=== PATIENT | female | born 2005 | race Caucasian/White ===

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

== ENCOUNTER 2023-07-02 23:44 | Emergency (ER) | payer OTHER, SELFPAY ==
[2023-07-02 23:56] VITALS: BP 140/78; PULSE 89; RESP 20; TEMP 36.1; O2SAT 98; BMI 22.6
--- NOTE | 2023-07-03 00:07 | ED_ITS ---
HPI - Ear Problem General Chief complaint: Ear Problems Stated complaint: Ear pain Time Seen by Provider: 07/03/23 00:07 Source: patient Mode of arrival: ambulatory Limitations: no limitations History of Present Illness HPI Narrative: Patient comes to the emergency room complaining of right ear pain for approximately 3 hours. Patient denies fever chills. Patient denies decreased hearing. Sore throat. Related Data Previous Rx's ?Medication ?Instructions ?Recorded amoxicillin 500 mg-potassium 1 tab PO BID #20 tabs 07/03/23 clavulanate 125 mg tablet (Augmentin) ibuprofen 600 mg tablet 600 mg PO TID PRN fever or pain 07/03/23 #14 tabs Allergies Allergy/AdvReac Type Severity Reaction Status Date / Time No Known Allergies Allergy Verified 07/02/23 23:59 Review of Systems Review of Systems: Constitutional : No Weight loss, No Fever, No Chills, No Night Sweats, No Fatigue, No Malaise ENT/Mouth : No Hearing loss, complaining of right-sided Ear Pain, No Nasal Congestion, No Sinus Pain, No Hoarseness, No sore throat, No Rhinorrhea, No Swallowing Difficulty Eyes: No Eye Pain, No Swelling, No Redness, No Foreign Body, No Discharge, No Vision Changes Cardiovascular : No Chest Pain, No SOB, No Dyspnea on Exertion, No Orthopnea, No Edema, No Palpitations Respiratory : No Cough, No Sputum, No Wheezing, No Smoke Exposure, No Dyspnea Gastrointestinal : No Nausea, No Vomiting, No Diarrhea, No Constipation, No a bdominal Pain, No Hematochezia, No Melena Genitourinary : no irregular bleeding, No Dysuria, No Urinary Frequency, No Hematuria, No Urinary Incontinence, No Urgency, No Flank Pain, No Urinary Flow Changes, No Hesitancy Musculoskeletal : No joint pain, No Myalgias, No Joint Swelling Skin : No Skin Lesions, No rash Neuro : No Weakness, No Numbness, No Paresthesias, No Loss of Consciousness, No Dizziness, No Headache Psych : No Anxiety/Panic, No Depression, No SI/HI/AH/VH, No Social Issues, Heme/Lymph: No Bruising, No Bleeding,No Lymphadenopathy Endocrine : No Polyuria, No Polydipsia, No Temperature Intolerance Physical Exam Vital Signs: Vital Signs: Last Vital Signs Temp 97 F 07/02/23 23:56 Pulse 89 07/02/23 23:56 Resp 20 07/02/23 23:56 BP 140/78 H 07/02/23 23:56 Pulse Ox 98 07/02/23 23:56 O2 Del Method Room Air 07/02/23 23:56 BMI result Body Mass Index 22.6 Const: Other: Appearance: Alert. Oriented X3. No acute distress. Eyes: Pupils equal, round and reactive to light. ENT: Pharynx normal. Left ear within normal limits, tympanic membrane normal. Right ear has erythematous ear canal and tympanic membrane, no tympanic ruptured. No mastoid bone tenderness bilaterally Neck: Normal inspection. Neck supple. No lymph nodes noted. No crepitus CVS: Normal heart rate and rhythm. Pulses normal. Normal S1 and S2 Respiratory: No respiratory distress. Breath sounds normal. No Wheezing. No rales Abdomen: Soft and nontender. No rigidity. No distention. Skin: Skin warm and dry. Normal skin color. Normal skin turgor. Extremities: No lower extremity edema. No Lacerations. No Rash Neuro: Oriented X 3. No motor deficit. No sensory deficit. Moving all extremities. No slurred speech. CN 2 through 12 grossly intact Psych: calm, cooperative, normal affect Medical Decision Making Medical Decision Making [facility]DM Narrative: I discussed the physical exam with the patient, patient has otitis media. Pat umesh denies swimming recently. No signs of otitis externa. Discharge Plan Discharge Clinical Impression: Otitis media Patient Disposition: Home, Self-Care Instructions: Ear Infection (ED) Additional Instructions: Please follow-up with your primary care physician tomorrow. If you have any worsening or new symptoms, please return to the emergency room or call 911 Prescriptions: New amoxicillin-pot clavulanate [Augmentin] 500-125 mg tablet 1 tab PO BID Qty: 20 0RF ibuprofen 600 mg tablet 600 mg PO TID PRN (Reason: fever or pain) Qty: 14 0RF Print Language: Divehi
--- NOTE | 2023-07-03 00:16 | PC.NURSE ---
Dr. Carter assessed pt in triage and discharge home. No sign of distress.
[2023-07-03 00:17] VITALS: BP 145/70; PULSE 80; RESP 20; TEMP 36.6; O2SAT 98
== END 2023-07-03 00:18 | disposition home or self-care (01) ==
PROVIDERS: Emergency Provider Emergency Medicine
DX: H66.91 Otitis media, unspecified, right ear (principal); H92.01 Otalgia, right ear
CPT/HCPCS: 99283; 99284